=== PATIENT | female | born 1935 | race Hispanic/Latino ===

== ENCOUNTER 2017-06-01 22:13 | Emergency (ER) | payer MEDICARE ==
[2017-06-01 22:34] VITALS: TEMP 98.7
[2017-06-01] MEDS ORDERED: NEOMYCIN-BACITRACIN-POLYMYXIN 0.9 GM UD TOP ONE (22:46)
[2017-06-01] MEDS ORDERED: CHLORHEXIDINE GLUCONATE 4 % 15 ML UD TOP ONE (22:46)
[2017-06-01] MEDS ORDERED: LIDOCAINE 1% 10 ML VIAL INJ ONE ×2 (22:46→23:10)
--- NOTE | 2017-06-01 22:50 | ED.PDOC ---
History of Present Illness - General Chief Complaint: Laceration Stated Complaint: head laceration Time Seen by Provider: 06/01/17 22:49 Source: patient, family Exam Limitations: no limitations - History of Present Illness Initial Comments: Patricia Saleh 82 y/o female brought by daughter after mom lost her balance trying to sit on her walker fell head hitting the door jamb of her bathroom.No LOC ;able to stand on her own has headache ,no blurry vision;no neck pains Occurred: just prior to arrival Severity: moderate Injuries/Pain Location: head - scalp Reason for Fall: lost balance, tripped Loss of Consciousness: no loss of consciousness Improving Factors: nothing Worsening Factors: nothing Associated Symptoms (Fall): headache Allergies/Adverse Reactions: Allergies NO KNOWN ALLERGY Allergy (Verified 06/01/17 22:35) Home Medications: Ambulatory Orders Chlorpheniramine & Phenylephri [Sudafed PE Sinus/Allergy 4-10 mg] 10 mg BID PRN 11/13/15 Glipizide 5 mg PO BID 11/13/15 Lisinopril & Hydrochlorothiazi [Lisinopril/Hctz 20-25 mg] 1 tab PO DAILY Lovastatin 40 mg PO DAILY 11/13/15 Metformin HCl [Glucophage] 500 mg PO BID 11/13/15 diphenhydrAMINE HCL [Benadryl] 25 mg PO PRN 11/13/15 Cephalexin 1,000 mg PO BID #20 cap 06/02/17 Review of Systems - Review of Systems Constitutional: States: no symptoms reported EENTM: States: no symptoms reported Respiratory: States: no symptoms reported Cardiology: States: no symptoms reported Gastrointestinal/Abdominal: States: no symptoms reported Genitourinary: States: no symptoms reported Musculoskeletal: States: no symptoms reported Skin: States: no symptoms reported Neurological: States: see HPI Past Medical History (General) - Patient Medical History Hx Seizures: No Hx Stroke: No Hx Dementia: No Hx Asthma: No Hx of COPD: No Hx Cardiac Disorders: Yes Hx Congestive Heart Failure: No Hx Pacemaker: No Hx Hypertension: Yes Hx Thyroid Disease: No Hx Diabetes: Yes Hx Gastroesophageal Reflux: No Hx Renal Disease: No Hx Cancer: No Hx of HIV: No Hx Hepatitis C: No Hx MRSA: No Surgical History: no surgical history - Vaccination History Hx Tetanus, Diphtheria Vaccination: No Hx Influenza Vaccination: No Hx Pneumococcal Vaccination: No - Social History Hx Tobacco Use: No Hx Alcohol Use: No Hx Substance Use: No Hx Substance Use Treatment: No Hx Depression: No Physical Exam - Physical Exam General Appearance: Alert, Comfortable, No apparent distress Head Injury: flap - scalp laceration extending to aponeurotic layer Eye Exam: bilateral normal ENT Exam: hearing grossly normal, no evidence of ENT injury, no dental injury Peripheral Pulses: radial,right: 2+, radial,left: 2+ Cardiovascular/Respiratory: regular rate, rhythm, no M/R/G, normal peripheral pulses, normal breath sounds Gastrointestinal/Abdominal: non tender, soft Back Exam: no CVA tenderness, no vertebral tenderness Neurologic: no motor/sensory deficits, alert, oriented x 3 Skin Exam: normal color, warm/dry, other - laceration scalp - Keisha Coma Score Best Eye Response ([place]): (3) open to voice Best Motor Response (Keisha): (6) obeys commands Keisha Total: 15 Progress - Progress Progress: 06/01/17 23:54 Vital Signs - 8 hr 06/01/17 22:28 Temperature 98.7 F Pulse Rate [ 78 monitor] Respiratory 16 Rate Blood Pressure 182/70 [Right Arm] O2 Sat by Pulse 97 Oximetry - EKG/XRAY/CT CT Ordered: Yes - no acute intracranial abnormality Procedures - Laceration/Wound Repair Head Wound Length (cm): 3.5 - scalp extends to aponeurotic layer Wound's Depth, Shape: irregular, flap Wound Explored: no foreign body removed Irrigated w/ Saline (cc's): 50 Anesthesia: 1% Lidocaine Volume Anesthetic (cc's): 12 Wound Repaired With: sutures Suture Size/Type: prolene Number of Sutures: 10 Layer Closure?: Yes - aponeurotic tear Deep Layer Suture Size/Type: 4:0, vicryl rapide Number Deep Layer Sutures: 3 Sterile Dressing Applied?: Yes Departure - Departure Clinical Impression: Fall against object Laceration of scalp without foreign body Qualifiers: Encounter type: initial encounter Qualified Code(s): S01.01XA - Laceration without foreign body of scalp, initial encounter Time of Disposition: 00:03 Disposition: Discharge to Home or Self Care Condition: Good Departure Forms: ED Discharge - Pt. Copy, Patient Portal Self Enrollment Instructions: DI for Laceration Repair, DI for Laceration Repair of the Scalp Referrals: LOGAN ULLOA [Primary Care Provider] - 1-2 Weeks Prescriptions: Cephalexin 1,000 mg PO BID #20 cap Home Medications: Ambulatory Orders Chlorpheniramine & Phenylephri [Sudafed PE Sinus/Allergy 4-10 mg] 10 mg BID PRN 11/13/15 Glipizide 5 mg PO BID 11/13/15 Lisinopril & Hydrochlorothiazi [Lisinopril/Hctz 20-25 mg] 1 tab PO DAILY Lovastatin 40 mg PO DAILY 11/13/15 Metformin HCl [Glucophage] 500 mg PO BID 11/13/15 diphenhydrAMINE HCL [Benadryl] 25 mg PO PRN 11/13/15 Cephalexin 1,000 mg PO BID #20 cap 06/02/17 Additional Instructions: May take Tylenol 500 mg by mouth 3 x a day for pain as needed Ice pack to scalp for 15 minutes 3 x a day during waking hours tomorrow only;REMOVAL OF SUTURES [facility] RETURN TO ER NEEDED
--- NOTE | 2017-06-01 22:59 | CT ---
EXAM DESCRIPTION: Head CLINICAL HISTORY: head lac, fell against door frame COMPARISON: None Available TECHNIQUE: Contiguous axial CT images of the head were obtained. Coronal and sagittal reconstructions were created from the axial data. This exam was performed according to our departmental dose-optimization program, which includes automated exposure control, adjustment of the mA and/or kV according to patient size and/or use of iterative reconstruction technique. FINDINGS: There is a right scalp soft tissue laceration. No retained radiopaque foreign body. No underlying fracture. There is no evidence of acute mass, mass effect, midline shift or hemorrhage. The ventricles and extra-axial CSF spaces are unremarkable. The brain parenchyma appears normal for the patient's age. No acute abnormalities of the bones is seen. IMPRESSION: No acute intracranial abnormality. Electronically signed by: Elías Ceballos 06/01/2017 10:58 PM [facility]
[2017-06-01] MEDS ORDERED: CEPHALEXIN MONOHYDRATE 500 MG CAP PO ONE (23:51)
[2017-06-02] MEDS ORDERED: ACETAMINOPHEN 325 MG TAB PO ONE (00:08)
[2017-06-02] MEDS ORDERED: TETANUS,DIPHTHERIA,PERTUSSIS 1 EA SYG IM ONE (00:14)
[2017-06-02 00:51] VITALS: BP 165/84; O2SAT 99
== END 2017-06-02 00:51 | disposition home or self-care (01) ==
LOC: ER 22:13
DX: S01.01XA Laceration without foreign body of scalp, initial encounter (principal); I10 Essential (primary) hypertension; Z79.899 Other long term (current) drug therapy; Z23 Encounter for immunization; W01.198A Fall on same level from slipping, tripping and stumbling with subsequent striking against other object, initial encounter; Y92.89 Other specified places as the place of occurrence of the external cause